=== PATIENT | male | born 1950 | race Caucasian/White ===

== ENCOUNTER 2024-12-15 15:33 | Outpatient (CLI) | payer MEDICARE, BC ==
[~2024-12-15 15:33] MED LIST: APIX5TAB3 PO; ASPI81TA53 PO; ATEN-168 PO; ATOR10TA PO; HYDR-3972 PO; PSYL0.4C2 PO
[2024-12-15 16:00] LABS: MEAN PLATELET VOLUME 10.0 FL (7.4-10.4); RED CELL DISTRIBUTION WIDTH 13.5 % (11.5-14.5)
[2024-12-15 16:18] LABS: CHOL/HDL RATIO 3.7 (0.00-4.99); CREATININE 1.02 MG/DL (0.60-1.10); LDL CHOLESTEROL 69 MG/DL (50-100); TOTAL CARBON DIOXIDE 29.5 MMOL/L (24-32); eGFR 71 ML/MIN
[2024-12-15 17:02] LABS: BANDS% (MANUAL) 1.0 % (0-10); EOSINOPHILS % (MANUAL) 1.0 % (0-6); LYMPHOCYTES % (MANUAL) 13.0 % (21-51); METAMYLEOCYTES% (MANUAL) 5.0 % (0-0); MONOCYTES % (MANUAL) 7.0 % (2-12); NEUTROPHILS % (MANUAL) 73.0 % (42-75); PLATELET ESTIMATE NORMAL
== END 2024-12-15 23:59 | disposition home or self-care (01) ==
LOC: RAD 15:33
PROVIDERS: ATTEND Internal Medicine
DX: Z48.89 Encounter for other specified surgical aftercare (principal); Z95.1 Presence of aortocoronary bypass graft; Z98.890 Other specified postprocedural states
CPT/HCPCS: 36415; 80053; 80061; 83036; 85007; 85025